=== PATIENT | female | born 1935 | race Caucasian/White ===

== ENCOUNTER 2016-06-07 20:16 | Emergency (ER) | payer OTHER ==
[~2016-06-07] VITALS: Ht 157.4 cm; Wt 90.7 kg
[2016-06-07 20:16] VITALS: BP 178/53
[~2016-06-07 20:16] MED LIST: ALPRAZOLAM0.25 M2 PO; B12,B-12,B 12500 MC1 PO; COUMADIN5 M2 PO; Coumadin7.5 MG PO; DILTIAZEM CD240 MG PO; GLIPIZIDE10 M2 PO; LASIX40 MG PO; METFORMIN HCL500 MG PO
[2016-06-07 20:44] LABS: BASO % 0.5 % (0.0-1.0); EOS # 0.2 10*3/uL (0.0-0.4); EOS % 2.9 % (1.0-4.0); HEMATOCRIT 40.5 % (37.0-47.0); HEMOGLOBIN 13.4 g/dl (12.0-16.0); LYMPH # 2.6 10*3/uL (1.3-4.4); LYMPH % 32.3 % (27.0-41.0); MEAN CELL VOLUME 88.4 fl (81.0-99.0); MEAN CORPUSCULAR HGB 29.3 pg (27.0-31.0); MEAN CORPUSCULAR HGB CONC 33.1 g/dl (33.0-37.0); MEAN PLATELET VOLUME 10.3 fl (9.6-12.3); MONO # 0.5 10*3/uL (0.1-1.0); MONO % 6.6 % (3.0-9.0); NEUT # 4.6 10*3/uL (2.3-7.9); NEUT % 57.6 % (47.0-73.0); PLATELET COUNT AUTOMATED 228 10*3/uL (130-400); RED BLOOD COUNT 4.58 10*6/uL (4.10-5.10); RED CELL DISTRI WIDTH 13.2 % (0-14.5); WHITE BLOOD COUNT 8.1 10*3/uL (4.8-10.8)
[2016-06-07 20:55] LABS: INTERNATIONAL NORM RATIO 4.2 (2.0-3.5); PROTHROMBIN TIME 46.2 SECONDS (9.0-12.4)
[2016-06-07 21:01] LABS: ALKALINE PHOSPHATASE 99 U/L (45-117); BILIRUBIN, TOTAL 0.5 mg/dl (0.2-1.0); BUN 22 mg/dl (7-24); CARBON DIOXIDE 30 mmol/L (21-32); CHLORIDE 103 mmol/L (98-107); CPK 36 U/L (26-192); EST GLOM FILT AFRICAN AMERICAN > 60 ml/min; GLUCOSE 139 mg/dL (65-99); LDH 166 U/L (84-246); MAGNESIUM 2.3 mg/dL (1.5-2.1); POTASSIUM 3.7 mmol/L (3.5-5.1); SGOT/AST 14 IU/L (3-35); SGPT/ALT 16 U/L (12-78); SODIUM 142 mmol/L (136-145); TOTAL PROTEIN 6.8 gm/dL (6.4-8.2)
[2016-06-07] MEDS ORDERED: COUMADIN3 M1 PO (21:02)
[2016-06-07] MEDS ORDERED: DULCOLAX10 M1 RC (21:03)
[2016-06-07] MEDS ORDERED: Haldol Concen2 MG/ML IM (21:04)
[2016-06-07] MEDS ORDERED: MILK OF MA400 MG/5 M PO (21:05)
[2016-06-07] MEDS ORDERED: MORPHINE S20 MG/1 M1 PO (21:06)
[2016-06-07 21:07] LABS: CKMB < 0.5 ng/ml (0.5-3.6); TROPONIN I < 0.015 ng/ml (<0.5)
[2016-06-07] MEDS ORDERED: RESTORIL15 MG PO (21:07)
[2016-06-07] MEDS ORDERED: TYLENOL325 M1 PO (21:07)
[2016-06-07] MEDS ORDERED: VITAMIN B12-FO1 EACH PO (21:08)
[2016-06-07] MEDS ORDERED: XANAX XR0.5 MG PO (21:09)
[2016-06-07 21:43] LABS: BILIRUBIN NEGATIVE (NEGATIVE); BLOOD NEGATIVE (NEGATIVE); CLARITY CLEAR (CLEAR); COLOR YELLOW (YELLOW); GLUCOSE NEGATIVE (NEGATIVE); KETONE NEGATIVE (NEGATIVE); LEUKO ESTERASE NEGATIVE (NEGATIVE); NITRITE NEGATIVE (NEGATIVE); PH 5.5 (5.0-9.0); PROTEIN NEGATIVE (NEGATIVE); SPECIFIC GRAVITY <= 1.005 (1.005-1.030); UROBILINOGEN 0.2 E.U./dl (0.2-1.0)
[2016-06-07 21:51] LABS: RBC 0-2 rbc/hpf (0-2); URINE REFLEX COMMENT NO (NO)
[2016-06-08] MEDS ORDERED: BACTRIM DS 8001 TA1 PO (00:12)
== END 2016-06-08 01:19 | disposition other institution (70) ==
LOC: ED 20:16
PROVIDERS: Student in an Organized Health Care Education/Training Program
DX: L03.116 Cellulitis of left lower limb (principal); F41.9 Anxiety disorder, unspecified; I48.91 Unspecified atrial fibrillation; I50.9 Heart failure, unspecified; E11.9 Type 2 diabetes mellitus without complications; Z86.73 Personal history of transient ischemic attack (TIA), and cerebral infarction without residual deficits; Z98.51 Tubal ligation status; Z90.710 Acquired absence of both cervix and uterus; Z90.49 Acquired absence of other specified parts of digestive tract; Z98.890 Other specified postprocedural states; Z79.01 Long term (current) use of anticoagulants; Z88.0 Allergy status to penicillin; Z88.8 Allergy status to other drugs, medicaments and biological substances